=== PATIENT | female | born 1980 | race Caucasian/White ===

== ENCOUNTER → 2018-04-22 | Outpatient (CLI) | payer SELFPAY ==
--- NOTE | 2018-04-22 11:04 | RADIOLOGY REPORT (SQ) ---
EXAM DESCRIPTION: CT ABD/PELVIS NO ORAL OR IV COMPLETED DATE/TIME: 04/22/2018 10:21 am REASON FOR STUDY: HEMATURIA (R31.29) R31.29 OTHER MICROSCOPIC HEMATURIA COMPARISON: None. TECHNIQUE: CT scan of the abdomen and pelvis performed without intravenous or oral contrast. Images reviewed with lung, soft tissue, and bone windows. Reconstructed coronal and sagittal MPR images revi ewed. All images stored on PACS. All CT scanners at this facility use dose modulation, iterative reconstruction, and/or weight based d osing when appropriate to reduce radiation dose to as low as reasonably achievable (ALARA). [facility]: Dose Right [facility]: CareDose [facility]: Dose Right [facility]: Teradose 4D [facility]: [employer] Vaccines RADIATION DOSE: CT Rad equipment meets quality standard of care and radiation dose reduction techniq ues were employed. CTDIvol: 17.6 mGy. DLP: 1028 mGy-cm.mGy. LIMITATIONS: None. FINDINGS: LOWER CHEST: No significant findings. No nodules or infiltrates. NON-CONTRASTED LIVER, SPLEEN, ADRENALS: Evaluation limited by lack of IV contrast. Liver spleen and right adrenal gland are unremarkable. 1.5 x 2.2 cm fatty benign left adrenal nodule of doubtful clin ical significance PANCREAS: No masses. No peripancreatic inflammatory changes. GALLBLADDER: Surgically absent RIGHT KIDNEY AND URETER: No suspicious masses. Assessment limited by lack of IV contrast. No signif icant calcifications. No hydronephrosis or hydroureter. LEFT KIDNEY AND URETER: No suspicious masses. Assessment limited by lack of IV contrast. No signifi cant calcifications. No hydronephrosis or hydroureter. AORTA AND RETROPERITONEUM: No aneurysm. No retroperitoneal masses or adenopathy. BOWEL AND PERITONEAL CAVITY: The no oral contrast. No CT signs of free intraperitoneal air or fluid. There is mild dilatation of left upper quadrant small bowel loops, without a discrete transition po int. Mid and distal small bowel loops, colon decompressed. APPENDIX: Normal. PELVIS, BLADDER, AND ABDOMINAL WALL:No abnormal masses. No free fluid. Bladder normal. Normal size f emale pelvic organs BONES: No significant findings. OTHER: Report called to Patrice EDWARDS at 1045 hours 04/13/2018 IMPRESSION: No urinary calculi are identified. Mildly dilated proximal small bowel loops without discrete transition point. Findings discussed with ordering practitioner as above COMMENT: Quality ID # [id number]: Final reports with documentation of one or more dose reduction techniques (e.g., Automated exposure control, adjustment of the mA and/or kV according to patient size, use of iterative reconstruction technique) TECHNICAL DOCUMENTATION: JOB ID: [id number] [employer]- All Rights Reserved Reading location - IP/workstation name: [email or web address]
== END ==
LOC: RAD 09:31
PROVIDERS: ATTEND Physician Assistant
DX: R31.29 Other microscopic hematuria (principal); K56.2 Volvulus
CPT/HCPCS: 74176

== ENCOUNTER 2019-05-28 11:07 | Emergency (ER) | payer BC ==
[2019-05-28] MEDS ORDERED: ADENOSINE INJ/PF 6 MG/2 ML SDV IV ONE ×4 (11:35→12:09)
[2019-05-28] MEDS ORDERED: NORMAL SALINE 1000 ML 1,000 ML IV ONE ×2 (11:35→15:09)
[2019-05-28] MEDS ORDERED: LORAZEPAM INJ 2 MG/1 ML VIAL IV ONE (11:35)
[2019-05-28 11:39] LABS: ABSOLUTE LYMPHOCYTES (AUTO) 0.5 10^3/uL (0.5-4.7); ABSOLUTE MONOCYTES (AUTO) 0.4 10^3/uL (0.1-1.4); ABSOLUTE NEUT (AUTO) 6.8 10^3/uL (1.7-8.2); BASOPHILS % (AUTO) 0.2 % (0-2); EOSINOPHILS % (AUTO) 0.4 % (0-6); HEMOGLOBIN 12.7 g/dL (12.0-15.5); LYMPHOCYTES % (AUTO) 6.4 % (13-45); MEAN CORPUSCULAR HEMOGLOBIN 28.5 pg (27.0-33.4); MEAN CORPUSCULAR HGB CONC 33.3 g/dL (32.0-36.0); MEAN CORPUSCULAR VOLUME 86 fl (80-97); MONOCYTES % (AUTO) 4.9 % (3-13); PLATELET COUNT 214 10^3/uL (150-450); RED BLOOD COUNT 4.44 10^6/uL (3.72-5.28); RED CELL DISTRIBUTION WIDTH 13.4 % (11.5-14.0); SEGMENTED NEUTROPHILS % (AUTO) 88.1 % (42-78); TOTAL CELLS COUNTED % (AUTO) 100 %; WHITE BLOOD COUNT 7.8 10^3/uL (4.0-10.5)
--- NOTE | 2019-05-28 11:42 | ER Document Report ---
ED General - General TRAVEL OUTSIDE OF THE [place] IN LAST 30 DAYS: No <SUSAN YOON - Last Filed: 05/28/19 16:21> <DARRYL GILBERT - Last Filed: 05/28/19 16:41> - General Chief Complaint: Palpitations Stated Complaint: POSSIBLE HEART PALPITATIONS Time Seen by Provider: 05/28/19 11:20 Primary Care Provider: JEANNE STEVENSON PA [NO LOCAL MD] - Follow up as needed SELINA CHAUHAN MD [ACTIVE PROVISIONAL STAFF] - Follow up in 1 week Notes: 39-year-old female brought in by EMS for racing heart. Patient states that she woke up this morning and felt tired, she has had a dry cough for the past day or 2 and she noticed that when she started to walk her heart rate jumped up into the 160s. She called 911 and they gave her Cardizem and Benadryl after she re fused the adenosine. States that it temporarily relieved some of her symptoms but now they are back. She is complaining of a discomfort in her chest that she would not describe as pain as well as a dry mouth. Patient has a history of subclinical thyrotoxicosis, she is treated with Toprol 12.5 mg to help with this. Also gives a history of anxiety. Patient does admit that she has had similar symptoms in the past but it usually goes away on its own. (SUSAN YOON) - Related Data Allergies/Adverse Reactions: labetalol [Labetalol] Allergy (Severe, Verified 05/28/19 11:29) Hypoglycemia Penicillins Allergy (Mild, Verified 05/28/19 11:29) Hives ranitidine HCl [From Zantac] Adverse Reaction (Severe, Verified 05/28/19 11:29) hepatitis erythromycin base [Erythromycin Base] Adverse Reaction (Intermediate, Verified 05/28/19 11:29) epig pain Past Medical History - General Information source: Patient - Social History Smoking Status: Never Smoker Chew tobacco use (# tins/day): No Frequency of alcohol use: None Drug Abuse: None Family History: Reviewed & Not Pertinent Patient has suicidal ideation: No Patient has homicidal ideation: No GI Medical History: Reports: Hx Gastroesophageal Reflux Disease Past Surgical History: Reports: Hx Cholecystectomy - Immunizations Hx Diphtheria, Pertussis, Tetanus Vaccination: Yes <SUSAN YOON - Last Filed: 05/28/19 16:21> Review of Systems - Review of Systems Constitutional: See HPI, Weakness EENT: No symptoms reported Cardiovascular: See HPI, Palpitations, Heart racing Respiratory: See HPI, Cough, Short of breath Neurological/Psychological: See HPI, Anxiety -: Yes All other systems reviewed and negative <SUSAN YOON - Last Filed: 05/28/19 16:21> Physical Exam - Vital signs Interpretation: Tachycardic <SUSAN YOON - Last Filed: 05/28/19 16:21> - Vital signs Vitals: Resp BP Pulse Ox 17 141/75 H 98 05/28/19 11:17 05/28/19 11:17 05/28/19 11:17 - Notes Notes: GENERAL: Alert, interacts well. Anxious. HEAD: Normocephalic, atraumatic EYES: Pupils equal, round and reactive to light, extraocular movements intact. ENT: Oral mucosa moist, tongue midline. Nares patent, tympanic membranes intact , left turbinate edema. NECK: Full range of motion, supple, trachea midline. LUNGS: Clear to auscultation bilaterally, no wheezes, rales or rhonchi, mildly tachypneic. HEART: Tachycardic but regular rate and rhythm, no murmurs, gallops, rubs. ABDOMEN: Soft, nontender, nondistended, bowel sounds present in all 4 quadrants. EXTREMITIES: Moves all 4 extremities spontaneously, no edema, radial and dorsalis pedis pulses 2/4 bilaterally. No cyanosis. NEUROLOGICAL: Alert and oriented x3, normal speech. PSYCH: Anxious. SKIN: Warm, Dry, normal turgor, no rashes or lesions noted. (SUSAN YOON) Course - Laboratory Result Diagrams: 05/28/19 11:11 05/28/19 11:11 <SUSAN YOON - Last Filed: 05/28/19 16:21> - Laboratory Result Diagrams: 05/28/19 11:11 05/28/19 11:11 <DARRYL GILBERT - Last Filed: 05/28/19 16:41> - Re-evaluation Re-evalutation: 05/28/19 12:06 Attempted adenosine 6 mg followed by 12 mg followed by another 12 mg as well as giving her Ativan for anxiety. He heart rate did temporarily slow and reveal an underlying sinus mechanism however it did not break. At this point given the patient's history of sub-clinical thyrotoxicosis I will continue with fluids, give her propranolol 1 mg IV and wait for testing to come back. 05/28/19 13:53 1 mg of propranolol did decrease her heart rate to the low 100s. Patient is feeling significantly better. 05/28/19 13:53 CBC unremarkable, CMP unremarkable, troponin undetectable, TSH low at 0.31, free T3 and T4 are normal, hCG negative, chest x-ray shows no acute process. Patient was given a liter of fluids as well. Discussed with patient that I cannot tell her exactly why she was so significantly tachycardic however she has had palpitations and tachycardia before in the past. Previously and currently treated with metoprolol 12.5 mg twice a day, 1 we discussed possibly increasing saying that she stated that when it went to 25 mg twice a day she had hypotension. Since propranolol is beneficial both for her tachycardia and for hyperthyroidism she is willing to try propranolol ER 60 mg daily and she will follow-up with Dr. Chauhan from cardiology as an outpatient for possible Holter monitor and other investigation into her SVT. 05/28/19 15:23 Patient's temperature was checked and found to be febrile 102.2. Patient has a red flush across her chest, it is not raised, it is now dark urticarial, it does not itch. No evidence of hives or allergic reaction at this time. Patient is now complaining of a pain in her chest that radiates to her back. States that initially the discomfort in her chest had gone away when her heart rate was lower but now it is back with a fever. EKG will be repeated, patient will be checked for UTI and influenza. D-dimer will be ordered to look for the po ssibility of PE or dissection. 05/28/19 16:21 Small blood in the urine, no signs of infection, flu swabs are negative, repeat troponin is pending. D-dimer is normal. So long as repeat troponin is also normal patient will be discharged to home, will return for any new symptoms. (SUSAN YOON) - Vital Signs Vital signs: Temp Pulse Resp BP Pulse Ox 101.5 F H 21 H 117/70 100 05/28/19 15:17 05/28/19 15:29 05/28/19 15:29 05/28/19 15:29 - Laboratory Laboratory results interpreted by me: 05/28/19 05/28/19 05/28/19 11:11 11:11 12:14 Lymph % (Auto) 6.4 L Seg Neutrophils % 88.1 H TSH 0.31 L Urine Blood SMALL H - EKG Interpretation by Me Additional EKG results interpreted by me: 05/28/19 13:55 EKG shows sinus tachycardia at a rate of 126, normal axis, normal intervals, no ST segment elevations or depressions, no T wave inversions per my interpretation. (SUSAN YOON) Discharge <SUSAN YOON - Last Filed: 05/28/19 16:21> <DARRYL GILBERT - Last Filed: 05/28/19 16:41> - Discharge Clinical Impression: SVT (supraventricular tachycardia), Hyperthyroidism Fever Qualifiers: Fever type: unspecified Qualified Code(s): R50.9 - Fever, unspecified Condition: Stable Disposition: HOME, SELF-CARE Additional Instructions: It is very important that you follow-up with a junior recruiter for your SVT. He may wish to do a Holter monitor or an echocardiogram. It is also important that you follow-up with your primary care physician and possibly an business development associate to continue tracking your hyperthyroidism. I have prescribed your propranolol ER 60 mg daily. This should help to decrease your episodes of tachycardia. I do not know why you have a fever. Your flu swab and your chest x-ray and your urine was negative for any signs of infection. Please return should you develop any new symptoms that might help us to figure out exactly what is causing your fever. This would include abdominal pain, neck pain, vomiting or confusion. Please return should your heart start racing again and not be controlled by your propranolol, if you develop chest pain or any new or concerning symptoms. Prescriptions: Propranolol HCl [Propranolol HCl ER] 60 mg PO DAILY #30 cap.sa.24h Referrals: JEANNE STEVENSON PA [NO LOCAL MD] - Follow up as needed SELINA CHAUHAN MD [ACTIVE PROVISIONAL STAFF] - Follow up in 1 week
[2019-05-28 11:51] LABS: ALBUMIN 4.1 g/dL (3.5-5.0); ALKALINE PHOSPHATASE 89 U/L (38-126); ANION GAP 9 (5-19); ASPARTATE AMINO TRANSFERASE 24 U/L (14-36); BILIRUBIN,TOTAL 0.5 mg/dL (0.2-1.3); BLOOD UREA NITROGEN 9 mg/dL (7-20); CARBON DIOXIDE 25 mmol/L (22-30); CHLORIDE 106 mmol/L (98-107); CREATINE KINASE 60 U/L (30-135); GLUCOSE 107 mg/dL (75-110); POTASSIUM 4.2 mmol/L (3.6-5.0); TOTAL PROTEIN 7.8 g/dL (6.3-8.2)
--- NOTE | 2019-05-28 11:53 | RADIOLOGY REPORT (SQ) ---
EXAM DESCRIPTION: CHEST SINGLE VIEW COMPLETED DATE/TIME: 05/28/2019 11:45 am REASON FOR STUDY: chest pain COMPARISON: Chest films 06/27/2014, 08/02/2012 EXAM PARAMETERS: NUMBER OF VIEWS: One view. TECHNIQUE: Single frontal radiographic view of the chest acquired. RADIATION DOSE: NA LIMITATIONS: None. FINDINGS: LUNGS AND PLEURA: No opacities, masses or pneumothorax. No pleural effusion. MEDIASTINUM AND HILAR STRUCTURES: No masses. Contour normal. HEART AND VASCULAR STRUCTURES: Heart normal in size. Normal vasculature. BONES: No acute findings. HARDWARE: None in the chest. OTHER: No other significant finding. IMPRESSION: NO ACUTE RADIOGRAPHIC FINDING IN THE CHEST. TECHNICAL DOCUMENTATION: JOB ID: [id number] [email or web address]- All Rights Reserved Reading location - IP/workstation name: [email or web address]
[2019-05-28 12:04] LABS: TROPONIN I < 0.012 ng/mL
[2019-05-28] MEDS ORDERED: PROPRANOLOL HCL INJ/PF 1 MG/1 ML SDV IV ONE (12:06)
[2019-05-28 12:38] LABS: FREE T3 3.03 pg/mL (2.77-5.27); FREE T4 (FREE THYROXINE) 1.5 ng/dL (0.78-2.19)
[2019-05-28 12:52] LABS: THYROID STIMULATING HORMONE 0.31 uIU/mL (0.47-4.68)
[2019-05-28] MEDS ORDERED: PROPRANOLOL HCL 40 MG TABLET PO ONE (13:50)
[2019-05-28] MEDS ORDERED: ACETAMINOPHEN 325 MG TABLET PO ONE (15:09)
[2019-05-28] MEDS ORDERED: IBUPROFEN 800 MG TABLET PO ONE (15:09)
[2019-05-28 15:57] LABS: APPEARANCE,URINE CLEAR; BILIRUBIN,URINE NEGATIVE (NEGATIVE); COLOR,URINE STRAW; GLUCOSE, URINE NEGATIVE (NEGATIVE); KETONES,URINE NEGATIVE (NEGATIVE); LEUKOCYTE ESTERASE,URINE NEGATIVE (NEGATIVE); NITRITE,URINE NEGATIVE (NEGATIVE); PROTEIN,URINE NEGATIVE (NEGATIVE); URINE SPECIFIC GRAVITY 1.006; UROBILINOGEN,URINE NEGATIVE mg/dL (<2.0)
--- NOTE | 2019-05-28 16:05 | EKG REPORT ---
SEVERITY:- ABNORMAL ECG - SINUS TACHYCARDIA ABNRM R PROG, CONSIDER ASMI OR LEAD PLACEMENT : Confirmed by: Haroldo Spicer MD 28-May-2019 16:05:27
[2019-05-28 16:15] LABS: A TYPE INFLUENZA AG NEGATIVE (NEGATIVE); B INFLUENZA AG NEGATIVE (NEGATIVE)
[2019-05-28 17:08] VITALS: BP 116/62
== END 2019-05-28 17:08 | disposition home or self-care (01) ==
LOC: ER 11:07
DX: I47.1 Supraventricular tachycardia (principal); E05.90 Thyrotoxicosis, unspecified without thyrotoxic crisis or storm; R50.9 Fever, unspecified; R00.2 Palpitations; R05 Cough; R53.1 Weakness; R68.2 Dry mouth, unspecified; Z79.899 Other long term (current) drug therapy; Z88.0 Allergy status to penicillin; Z88.8 Allergy status to other drugs, medicaments and biological substances
CPT/HCPCS: 93005; 99285; 96361; 96374; 96375; 36415; 84439; 82553; 82550; 84443; 84703; 85025; 80053; 81001; 84484; 84481; 85379; 87804; 71045; 93010; J2060; J1800; J3490; J7030; J0153

== ENCOUNTER 2019-05-29 05:06 | Inpatient (IN) | payer BC ==
[2019-05-29] MEDS ORDERED: ACETAMINOPHEN 325 MG TABLET PO ONE (05:25)
[2019-05-29] MEDS ORDERED: RINGERS LACTATED IV ONE (05:25)
--- NOTE | 2019-05-29 05:28 | ER Document Report ---
ED General - General Stated Complaint: SVT Notes: With ongoing palpitations and tachycardia. Is been going on for about 3 days. She was seen here yesterday diagnosed with SVT although did not convert with adenosine was discharged with propranolol but did not fill. Intermittent palpitations and fast heart rate going on for about 3 days. She denies a fever but is febrile. She denies any pain other than epigastric discomfort/lower chest discomfort during episodes of tachycardia. She said when she was discharged her heart rate is 60 but it jumped up to the high 100s overnight. Family history of [place]'snegative recent TSH but no work-up for this as an outpatient. Denies body aches sore throat headache shortness of breath recent surgeries or leg swelling. TRAVEL OUTSIDE OF THE [place] IN LAST 30 DAYS: No - Related Data Allergies/Adverse Reactions: labetalol [Labetalol] Allergy (Severe, Verified 05/28/19 11:29) Hypoglycemia Penicillins Allergy (Mild, Verified 05/28/19 11:29) Hives ranitidine HCl [From Zantac] Adverse Reaction (Severe, Verified 05/28/19 11:29) hepatitis erythromycin base [Erythromycin Base] Adverse Reaction (Intermediate, Verified 05/28/19 11:29) epig pain Past Medical History - Social History Smoking Status: Never Smoker Family History: Reviewed & Not Pertinent GI Medical History: Reports: Hx Gastroesophageal Reflux Disease Past Surgical History: Reports: Hx Cholecystectomy - Immunizations Hx Diphtheria, Pertussis, Tetanus Vaccination: Yes Review of Systems - Review of Systems Notes: REVIEW OF SYSTEMS GEN: Denies fever, chills, weight loss ENT: Denies sore throat, nasal discharge, ear pain EYES: Denies blurry vision, eye pain, discharge CV: Lower chest pain, palpitations RESP: Denies cough, shortness of breath, wheezing GI: Denies abdominal pain, nausea, vomiting, diarrhea MSK: Denies joint pain/swelling, edema, SKIN: Denies rash, skin lesions LYMPH: Denies swollen glands/lymph nodes NEURO: Denies headache, focal weakness or numbness, dizziness PSYCH: Denies depression, suicidal or homicidal ideation PHYSICAL EXAMINATION General: The touch. No acute distress, well-nourished Head: Atraumatic, normocephalic ENT: Mouth normal, oropharynx moist, no exudates or tonsillar enlargement Eyes: Conjunctiva normal, pupils equal, lids normal Neck: No JVD, supple, no guarding CVS: Regular tachycardia, no murmurs gallops or rubs Resp: No resp distress, equal and normal breath sounds bilaterally GI: Nondistended, soft, no tenderness to palpation, no rebound or guarding Ext: No deformities, no edema, normal range of motion in upper and lower ext Back: No CVA or midline TTP Skin: No rash, warm Lymphatic: No lymphadeopathy noted Neuro: Awake, alert. Face symmetric. GCS 15. Physical Exam - Vital signs Vitals: Temp Pulse Ox 102.3 F H 99 05/29/19 05:07 05/29/19 05:07 Course - Re-evaluation Re-evalutation: 05/29/19 08:08 Patient presents with sinus tachycardia unexplained systemic symptoms and history of thyroid issues EKG confirmed sinus tachycardia Does have mild shortness of breath No evidence of pneumonia Check labsTSH is decreased likely subclinical thyrotoxicosis. Given metoprolol x1, heart rate [id number] PE study pending, sent secondary to unexplained tachycardia however thyroid is more likely Patient was given IV fluids as well. Patient was discussed with Dr. wilson saw she/day hospitalist will be admitted to [facility] - Vital Signs Vital signs: Temp Pulse Resp BP Pulse Ox 98.5 F 18 131/74 H 98 05/29/19 08:00 05/29/19 07:16 05/29/19 07:16 05/29/19 07:16 Young female patient presents with ongoing palpitations, sinus tachycardia history of hyperthyroid/subclinical thyrotoxicosis and fever. Recent work-up negative No localizing symptoms Ongoing to rule out PE, treat with fluids, do sepsis work-up and TSH Also added T3-T4 - Laboratory Result Diagrams: 05/29/19 04:40 05/29/19 04:40 Laboratory results interpreted by me: 05/29/19 05/29/19 05/29/19 04:40 04:40 04:40 Lymph % (Auto) 5.1 L Absolute Lymphs (auto) 0.3 L Seg Neutrophils % 87.0 H VBG pCO2 AST 45 H TSH 0.31 L Free T3 pg/mL Urine Ketones Urine Blood 05/29/19 05/29/19 05/29/19 05:35 05:53 06:58 Lymph % (Auto) Absolute Lymphs (auto) Seg Neutrophils % VBG pCO2 34.7 L AST TSH Free T3 pg/mL 2.70 L Urine Ketones TRACE H Urine Blood SMALL H - Diagnostic Test Radiology reviewed: Image reviewed, Reports reviewed - EKG Interpretation by Me EKG shows normal: Sinus rhythm Rate: Tachycardia When compared to previous EKG there are: Changes noted Critical Care Note - Critical Care Note Total time excluding time spent on procedures (mins): 34 Comments: The above patient is critically ill. Not including procedures, but including direct re-evaluations, speaking with patient and/or consultants, interpreting results, and documenting, I spent the total amount of minute listed listed above on critical care time Discharge - Discharge Clinical Impression: Thyrotoxicosis Qualifiers: Thyrotoxicosis type: other Thyrotoxic crisis or storm presence: with thyrotoxic crisis or storm Qualified Code(s): E05.81 - Other thyrotoxicosis with thyrotoxic crisis or storm Condition: Fair Disposition: ADMITTED INPATIENT Admitting Provider: Donald (Hospitalist) Unit Admitted: [facility]
[2019-05-29] MEDS ORDERED: IBUPROFEN 800 MG TABLET PO ONE (05:39)
[2019-05-29] MEDS ORDERED: IBUPROFEN 800 MG TABLET ONE (05:40)
[2019-05-29 05:43] LABS: ABSOLUTE LYMPHOCYTES (AUTO) 0.3 10^3/uL (0.5-4.7); ABSOLUTE MONOCYTES (AUTO) 0.4 10^3/uL (0.1-1.4); ABSOLUTE NEUT (AUTO) 4.4 10^3/uL (1.7-8.2); BASOPHILS % (AUTO) 0.3 % (0-2); EOSINOPHILS % (AUTO) 0.4 % (0-6); HEMOGLOBIN 12.8 g/dL (12.0-15.5); LYMPHOCYTES % (AUTO) 5.1 % (13-45); MEAN CORPUSCULAR HEMOGLOBIN 28.9 pg (27.0-33.4); MEAN CORPUSCULAR HGB CONC 33.8 g/dL (32.0-36.0); MEAN CORPUSCULAR VOLUME 85 fl (80-97); MONOCYTES % (AUTO) 7.2 % (3-13); PLATELET COUNT 200 10^3/uL (150-450); RED BLOOD COUNT 4.45 10^6/uL (3.72-5.28); RED CELL DISTRIBUTION WIDTH 13.8 % (11.5-14.0); TOTAL CELLS COUNTED % (AUTO) 100 %; WHITE BLOOD COUNT 5.1 10^3/uL (4.0-10.5)
[2019-05-29 05:47] LABS: INTERNATIONAL RATION (INR) 1.02; PROTHROMBIN TIME 13.4 SEC (11.4-15.4)
[2019-05-29 06:10] LABS: A TYPE INFLUENZA AG NEGATIVE (NEGATIVE); B INFLUENZA AG NEGATIVE (NEGATIVE)
[2019-05-29 06:14] LABS: ALBUMIN 4.1 g/dL (3.5-5.0); ALKALINE PHOSPHATASE 91 U/L (38-126); ANION GAP 9 (5-19); ASPARTATE AMINO TRANSFERASE 45 U/L (14-36); BILIRUBIN,TOTAL 0.3 mg/dL (0.2-1.3); BLOOD UREA NITROGEN 7 mg/dL (7-20); CALCIUM 9.3 mg/dL (8.4-10.2); CARBON DIOXIDE 25 mmol/L (22-30); CHLORIDE 106 mmol/L (98-107); GLUCOSE 92 mg/dL (75-110); POTASSIUM 3.9 mmol/L (3.6-5.0); TOTAL PROTEIN 7.5 g/dL (6.3-8.2)
[2019-05-29 06:23] LABS: APPEARANCE,URINE SLIGHTLY-CLOUDY; BILIRUBIN,URINE NEGATIVE (NEGATIVE); COLOR,URINE YELLOW; GLUCOSE, URINE NEGATIVE (NEGATIVE); KETONES,URINE TRACE mg/dL (NEGATIVE); PROTEIN,URINE NEGATIVE (NEGATIVE); URINE SPECIFIC GRAVITY 1.014; UROBILINOGEN,URINE NEGATIVE mg/dL (<2.0)
[2019-05-29 06:42] LABS: VENOUS BLOOD BASE EXCESS -1.9 mmol/L; VENOUS BLOOD HCO3 22.2 mmol/L (20-32); VENOUS BLOOD PCO2 34.7 mmHg (35-63); VENOUS BLOOD PH 7.42 (7.30-7.42)
[2019-05-29] MEDS ORDERED: METOPROLOL TARTRATE PF/INJ 5 MG/5 ML SDV IV ONE (06:46)
--- NOTE | 2019-05-29 07:43 | RADIOLOGY REPORT (SQ) ---
EXAM DESCRIPTION: CT CHEST ANGIOGRAPHY WITHOUT THEN WITH IV CONTRAST COMPLETED DATE/TME: 05/29/2019 05:39 CLINICAL HISTORY: Chest pain unexplained tachycardia COMPARISON: None Available. TECHNIQUE: CTA of the chest obtained before and after the intravenous administration of 160 mL Isovue-300. IVC filter first injection. 3-D/MIP reformatted images of the chest available for evaluation. FINDINGS: Chest: Pulmonary arteries: Contrast bolus is adequate.No filling defects identified in the pulmonary arteries to suggest pulmonary embolus. Thyroid:No abnormalities of the visualized thyroid. Great Vessels:Great vessels have normal anatomic configuration. Thoracic Aorta:No abnormalities of the thoracic aorta identified. Heart:No cardiomegaly, significant pericardial effusion, or coronary artery atherosclerosis Lymph Nodes:No enlarged mediastinal lymph nodes identified. Esophagus:No abnormalities of the esophagus identified. Other:No additional findings. Lungs:No airspace opacities identified. Pleura:No pleural effusion or pneumothorax. Trachea/Airways:No abnormalities of the visualized trachea or airways. Bones: Minimal degenerative change of the spine. Upper Abdomen:Limited images of the upper abdomen demonstrate no definite abnormalities of visualized portions of the liver, pancreas, spleen, right adrenal gland, or kidneys. Prior cholecystectomy. Stable 2.1 cm lipid rich left adrenal adenoma. No follow-up imaging recommended. IMPRESSION: 1. No pulmonary embolus. This exam was performed according to our departmental dose-optimization program, which includes automated exposure control, adjustment of the mA and/or kV according to patient size and/or use of iterative reconstruction technique.
[2019-05-29 07:52] LABS: FREE T3 2.7 pg/mL (2.77-5.27); FREE T4 (FREE THYROXINE) 1.51 ng/dL (0.78-2.19)
--- NOTE | 2019-05-29 09:16 | EKG REPORT ---
SEVERITY:- BORDERLINE ECG - SINUS TACHYCARDIA BORDERLINE R WAVE PROGRESSION, ANTERIOR LEADS BORDERLINE T ABNORMALITIES, INFERIOR LEADS : Confirmed by: Akbar Dennison 29-May-2019 09:16:07
[2019-05-29] MEDS ORDERED: ACETAMINOPHEN 325 MG TABLET PO PRN (10:11)
[2019-05-29] MEDS ORDERED: MAG HYDROX/AL HYDROX/SIMETH SUSP 30 ML UDCUP PO PRN (10:11)
[2019-05-29] MEDS ORDERED: LEVALBUTEROL HCL NEB 1.25 MG/3 ML AMPUL NEB PRN (10:11)
[2019-05-29] MEDS ORDERED: MAGNESIUM HYDROXIDE SUSP 30 ML UDCUP PO PRN (10:11)
[2019-05-29] MEDS ORDERED: ONDANSETRON HCL INJ/PF 4 MG/2 ML SDV IV PRN (10:11)
--- NOTE | 2019-05-29 13:41 | RADIOLOGY REPORT (SQ) ---
EXAM DESCRIPTION: U/S THYROID/SFT TISS HD NECK COMPLETED DATE/TIME: 05/29/2019 1:17 pm REASON FOR STUDY: hyperthyroidism, nodule COMPARISON: None. TECHNIQUE: Dynamic and static diaz-scale images acquired of the thyroid gland. Selected additional c olor/power Doppler images recorded. All images stored to PACS. LIMITATIONS: None. FINDINGS: RIGHT LOBE: Normal size. Homogeneous echotexture. No cystic or solid masses. LEFT LOBE: Normal size. Homogeneous echotexture. No cystic or solid masses. ISTHMUS: Normal size. Homogeneous echotexture. No cystic or solid masses. OTHER: No other significant finding. IMPRESSION: NORMAL THYROID ULTRASOUND. TECHNICAL DOCUMENTATION: JOB ID: [id number] [employer]- All Rights Reserved Reading location - IP/workstation name: [email or web address]
[2019-05-29] MEDS: HEPARIN SOD (PORCINE) 5,000 UNIT/ML 1 ML VIAL SUBCUT SCH ×2 (13:48→22:35)
[2019-05-29] MEDS: NORMAL SALINE 1000 ML 1,000 ML IV PRN (14:25)
[2019-05-29] MEDS ORDERED: IBUPROFEN 800 MG TABLET PO PRN (15:33)
--- NOTE | 2019-05-29 15:39 | PDOC H&P ---
History of Present Illness Admission Date/PCP: 05/29/19 07:45 ERNESTINA FELTON MD Patient complains of: Rapid heart rate History of Present Illness: EUN ALBARRAN is a 39 year old female with a past medical history significant for hypertension, GERD, depression, and obesity who presented to the emergency department via EMS with complaint of SVT (HR 140s). Patient had been seen in the emergency department the day prior for similar symptoms; received adenosine x3. 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 She returned to the emergency department prior to her next due dose of propanolol. Of note, patient does take metoprolol tartrate 12.5 mg twice daily as a home medication. Patient reports that she has had previous episodes of tachycardia but no prior history of SVT. 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 She does report that during a , she was diagnosed with subclinical hyperthyroidism. She reports that she was told that time she had a thyroid nodule. She has not followed up with endocrinology or been prescribed m edications for thyroid disorder in more than 3 years. Evaluation in the emergency department revealed a fever of 102.3, heart rate of 104 140, normal blood pressure, unremarkable CBC, coags, VBG, and chemistry. Patient was noted to have a TSH of 0.31 with a free T4 of 1.51 and free T3 of 2.70. Urinalysis was negative. Influenza negative. CTA of the chest negative for pulmonary embolus with only abnormal finding being a stable 2.1 cm lipid rich left adrenal adenoma. She was provided IV fluid bolus and IV Lopressor. She was referred to the hospitalist service for admission and management of SVT presumed to be related to hyperthyroidism. Past Medical History Cardiac Medical History: Reports: Hypertension Denies: Congestive Heart Failure, Coronary Artery Disease, Myocardial Infarction, Hyperlipidema Pulmonary Medical History: Reports: None EENT Medical History: Reports: None Neurological Medical History: Reports: None Endocrine Medical History: Reports: Hyperthyroidism, Obesity Denies: Diabetes Mellitus Type 2 Malignancy Medical History: Reports: None GI Medical History: Reports: Gastroesophageal Reflux Disease Musculoskeltal Medical History: Reports: None Skin Medical History: Reports: None Psychiatric Medical History: Reports: None Traumatic Medical History: Reports: None Hematology: Reports: None Infectious Medical History: Reports: None Past Surgical History Past Surgical History: Reports: Cholecystectomy Social History Information Source: Patient Lives with: Family Smoking Status: Never Smoker Electronic Cigarette use?: No Frequency of Alcohol Use: None Hx Recreational Drug Use: No Hx Prescription Drug Abuse: No - Advance Directive Resuscitation Status: Full Code Surrogate healthcare decision maker:: The patient's . Family History Family History: Thyroid Disfunction Parental Family History Reviewed: Yes Children Family History Reviewed: Yes Sibling(s) Family History Reviewed.: Yes Medication/Allergy Home Medications: Metoprolol Tartrate [Lopressor 25 mg Tablet] 12.5 mg PO Q12 05/29/19 Pantoprazole Sodium [Protonix [address] Tablet] 40 mg PO Q6AM 05/29/19 Venlafaxine HCl ER [Effexor Xr 37.5 mg Cap.sr] 37.5 mg PO DAILY 05/29/19 Allergies/Adverse Reactions: labetalol [Labetalol] Allergy (Severe, Verified 05/28/19 11:29) Hypoglycemia Penicillins Allergy (Mild, Verified 05/28/19 11:29) Hives ranitidine HCl [From Zantac] Adverse Reaction (Severe, Verified 05/28/19 11:29) hepatitis erythromycin base [Erythromycin Base] Adverse Reaction (Intermediate, Verified 05/28/19 11:29) epig pain Review of Systems Constitutional: PRESENT: fever(s). ABSENT: chills, headache(s), weight gain, weight loss Eyes: ABSENT: visual disturbances Ears: ABSENT: hearing changes Cardiovascular: PRESENT: palpitations. ABSENT: chest pain, dyspnea on exertion, edema, orthropnea Respiratory: ABSENT: cough, hemoptysis Gastrointestinal: ABSENT: abdominal pain, constipation, diarrhea, hematemesis, hematochezia, nausea, vomiting Genitourinary: ABSENT: dysuria, hematuria Musculoskeletal: ABSENT: joint swelling Integumentary: ABSENT: rash, wounds Neurological: ABSENT: abnormal gait, abnormal speech, confusion, dizziness, focal weakness, syncope Psychiatric: ABSENT: anxiety, depression, homidical ideation, suicidal ideation Endocrine: ABSENT: cold intolerance, heat intolerance, polydipsia, polyuria Hematologic/Lymphatic: ABSENT: easy bleeding, easy bruising Physical Exam Vital Signs: Temp Pulse Resp BP Pulse Ox 98.9 F 110 H 18 124/62 99 05/29/19 11:18 05/29/19 14:00 05/29/19 11:18 05/29/19 11:18 05/29/19 11:18 Intake & Output 05/28/19 05/29/19 05/30/19 06:59 06:59 06:59 Intake Total 240 Output Total 0 Balance 240 Weight 90 kg 107.4 kg General appearance: PRESENT: no acute distress, cooperative, obese, well- developed, well-nourished Head exam: PRESENT: atraumatic, normocephalic Eye exam: PRESENT: conjunctiva pink, EOMI, PERRLA. ABSENT: scleral icterus Ear exam: PRESENT: normal external ear exam Mouth exam: PRESENT: moist, tongue midline Neck exam: ABSENT: carotid bruit, JVD, lymphadenopathy, thyromegaly Respiratory exam: PRESENT: clear to auscultation carmen, symmetrical, unlabored. ABSENT: rales, rhonchi, wheezes Cardiovascular exam: PRESENT: RRR, +S1, +S2, tachycardia - <110. ABSENT: diastolic murmur, rubs, systolic murmur Pulses: PRESENT: normal dorsalis pedis pul Vascular exam: PRESENT: normal capillary refill GI/Abdominal exam: PRESENT: normal bowel sounds, soft. ABSENT: distended, guarding, mass, organolmegaly, rebound, tenderness Rectal exam: PRESENT: deferred Extremities exam: PRESENT: full ROM. ABSENT: calf tenderness, clubbing, pedal edema Neurological exam: PRESENT: alert, awake, oriented to person, oriented to place, oriented to time, oriented to situation, CN II-XII grossly intact. ABSENT: motor sensory deficit Psychiatric exam: PRESENT: appropriate affect, normal mood. ABSENT: homicidal ideation, suicidal ideation Skin exam: PRESENT: dry, intact, warm. ABSENT: cyanosis, rash Results Laboratory Results: 05/29/19 04:40 05/29/19 04:40 05/29/19 05/29/19 05/29/19 04:40 04:40 04:40 WBC 5.1 RBC 4.45 Hgb 12.8 Hct 38.0 MCV 85 MCH 28.9 MCHC 33.8 RDW 13.8 Plt Count 200 Seg Neutrophils % 87.0 H VBG pH VBG pCO2 VBG HCO3 VBG Base Excess Sodium 140.0 Potassium 3.9 Chloride 106 Carbon Dioxide 25 Anion Gap 9 BUN 7 Creatinine 0.73 Est GFR ( Amer) > 60 Glucose 92 Lactic Acid Calcium 9.3 Total Bilirubin 0.3 AST 45 H Alkaline Phosphatase 91 Total Protein 7.5 Albumin 4.1 TSH 0.31 L Free T4 Free T3 pg/mL Serum HCG, Qual Urine Color Urine Appearance Urine pH Ur Specific [place] Urine Protein Urine Glucose (UA) Urine Ketones Urine Blood Urine RBC (Auto) 05/29/19 05/29/19 05/29/19 04:40 04:40 05:12 WBC RBC Hgb Hct MCV MCH MCHC RDW Plt Count Seg Neutrophils % VBG pH VBG pCO2 VBG HCO3 VBG Base Excess Sodium Potassium Chloride Carbon Dioxide Anion Gap BUN Creatinine Est GFR ( Amer) Glucose Lactic Acid 0.9 Calcium Total Bilirubin AST Alkaline Phosphatase Total Protein Albumin TSH Free T4 Cancelled Free T3 pg/mL Cancelled Serum HCG, Qual Cancelled Urine Color Urine Appearance Urine pH Ur Specific [place] Urine Protein Urine Glucose (UA) Urine Ketones Urine Blood Urine RBC (Auto) 05/29/19 05/29/19 05/29/19 05:35 05:53 06:58 WBC RBC Hgb Hct MCV MCH MCHC RDW Plt Count Seg Neutrophils % VBG pH 7.42 VBG pCO2 34.7 L VBG HCO3 22.2 VBG Base Excess -1.9 Sodium Potassium Chloride Carbon Dioxide Anion Gap BUN Creatinine Est GFR ( Amer) Glucose Lactic Acid Calcium Total Bilirubin AST Alkaline Phosphatase Total Protein Albumin TSH Free T4 Free T3 pg/mL Serum HCG, Qual NEGATIVE Urine Color YELLOW Urine Appearance SLIGHTLY-CLOUDY Urine pH 7.0 Ur Specific [place] 1.014 Urine Protein NEGATIVE Urine Glucose (UA) NEGATIVE Urine Ketones TRACE H Urine Blood SMALL H Urine RBC (Auto) 7 05/29/19 05/29/19 05/29/19 06:58 08:08 12:32 WBC RBC Hgb Hct MCV MCH MCHC RDW Plt Count Seg Neutrophils % VBG pH VBG pCO2 VBG HCO3 VBG Base Excess Sodium Potassium Chloride Carbon Dioxide Anion Gap BUN Creatinine Est GFR ( Amer) Glucose Lactic Acid 0.5 L 1.1 Calcium Total Bilirubin AST Alkaline Phosphatase Total Protein Albumin TSH Free T4 1.51 Free T3 pg/mL 2.70 L Serum HCG, Qual Urine Color Urine Appearance Urine pH Ur Specific [place] Urine Protein Urine Glucose (UA) Urine Ketones Urine Blood Urine RBC (Auto) 05/29/19 04:40 Troponin I < 0.012 Impressions: Thyroid Ultrasound 05/29/19 00:00 IMPRESSION: NORMAL THYROID ULTRASOUND. Chest/Abdomen CTA 05/29/19 05:39 IMPRESSION: 1. No pulmonary embolus. This exam was performed according to our departmental dose-optimization program, which includes automated exposure control, adjustment of the mA and/or kV according to patient size and/or use of iterative reconstruction technique. Assessment and Plan - Diagnosis (1) SVT (supraventricular tachycardia) Is this a current diagnosis for this admission?: Yes Plan: Multiple emergency department visits for SVT. During her first visit she was administered adenosine 6 mg, 12 mg, 12 mg with decrease and heart rate but per patient not complete resolution of her tachycardia. She was discharged home with a prescription for propanolol but return to the emergency department by EMS prior to taking her first dose of this medication. Patient is admitted to [facility] on continuous cardiac telemetry. Thyroid panel does not fully support hyperthyroidism as the source of her SVT. Patient has been noted to have a fever of 102; her tachycardia likely coincides with fever. Unclear etiology of fever at this time; will investigate fever further. Blood and urine cultures pending. We will adjust metoprolol to Toprol-XL 25 mg twice daily for management of blood pressure and heart rate. Recommend outpatient cardiology follow-up; patient requests referral to Dr. Chauhan to see following discharge. (2) Fever Qualifiers: Fever type: unspecified Qualified Code(s): R50.9 - Fever, unspecified Is this a current diagnosis for this admission?: Yes Plan: Intermittent fevers; TMax of 102. Unclear etiology at this time. Patient's thyroid function does not fully support hyperthyroidism. I would not expect hyperthyroidism to cause a temperature of 102 without additional symptoms being present (patient denies headaches, weight loss, hair loss, anxiety, etc.). Patient's tachycardia is intermittent (possibly this coincides with fever?). CT of the chest was negative for pneumonia. Urinalysis negative for UTI. Blood and urine cultures are pending. Influenza screening negative and patient does not appear acutely ill. She denies rashes and skin wounds. No clear indications for antibiotic therapy at this time. We will continue IV fluids. Monitor for signs and symptoms of infectious process to warrant disease specific interventions. (3) Hyperthyroidism Is this a current diagnosis for this admission?: Yes Plan: Borderline laboratory evaluation with TSH of 0.31, free T4 1.51 and free T3 of 2.70. The somewhat low TSH does not correlate well with an elevated T3 or T4 to confirm hyperthyroidism. Thyroid ultrasound obtained today was normal. Patient denies symptoms to support hyperthyroidism other than SVT. It does appear that the patient has an elevated temperature of 102 which also could not be fully accounted for based on thyroid function alone. Low suspicion for hyperthyroidism at this time, therefore will hold on starting methimazole. We will start methimazole tomorrow if no clear source of fever has presented itself at that time or if she continues to have tachycardia despite increased metoprolol. Will discuss with endocrinology prior to discharge. (4) Hypertension Qualifiers: Hypertension type: essential hypertension Qualified Code(s): I10 - Essential (primary) hypertension Is this a current diagnosis for this admission?: Yes Plan: Acceptable blood pressure on home dose metoprolol. I am changing the patient's metoprolol today secondary to recurrent SVT; will discontinue metoprolol tartrate and start Toprol-XL 25 mg twice daily. (5) Obesity Qualifiers: Body mass index: BMI 39.0-39.9 Is this a current diagnosis for this admission?: Yes Plan: Dietary discretion and lifestyle modification encouraged. - Time Time Spent with patient: 35 or more minutes Medications reviewed and adjusted accordingly: Yes Anticipated discharge: Home Within: within 48 hours
[2019-05-29 21:32] LABS: APPEARANCE,URINE CLEAR; BILIRUBIN,URINE NEGATIVE (NEGATIVE); COLOR,URINE STRAW; GLUCOSE, URINE NEGATIVE (NEGATIVE); KETONES,URINE NEGATIVE (NEGATIVE); PROTEIN,URINE NEGATIVE (NEGATIVE); URINE SPECIFIC GRAVITY 1.011; UROBILINOGEN,URINE NEGATIVE mg/dL (<2.0)
[2019-05-29] MEDS ORDERED: METOPROLOL TARTRATE 25 MG TABLET PO SCH (22:00)
[2019-05-29] MEDS: METOPROLOL SUCCINATE 25 MG TAB.SR.24H PO SCH (22:35)
[2019-05-30] MEDS: NORMAL SALINE 1000 ML 1,000 ML IV PRN ×2 (00:29→11:03)
[2019-05-30 05:32] LABS: HEMATOCRIT 35.6 % (36.0-47.0); HEMOGLOBIN 11.8 g/dL (12.0-15.5); MEAN CORPUSCULAR HEMOGLOBIN 28.3 pg (27.0-33.4); MEAN CORPUSCULAR VOLUME 86 fl (80-97); PLATELET COUNT 154 10^3/uL (150-450); RED BLOOD COUNT 4.16 10^6/uL (3.72-5.28); RED CELL DISTRIBUTION WIDTH 13.8 % (11.5-14.0); WHITE BLOOD COUNT 3.4 10^3/uL (4.0-10.5)
[2019-05-30] MEDS: HEPARIN SOD (PORCINE) 5,000 UNIT/ML 1 ML VIAL SUBCUT SCH ×2 (05:55→13:32)
[2019-05-30] MEDS ORDERED: PANTOPRAZOLE SODIUM 40 MG TABLET.DR PO SCH (06:00)
[2019-05-30 06:03] LABS: ANION GAP 8 (5-19); BLOOD UREA NITROGEN 7 mg/dL (7-20); CALCIUM 8.3 mg/dL (8.4-10.2); CARBON DIOXIDE 23 mmol/L (22-30); CHLORIDE 108 mmol/L (98-107); GLUCOSE 92 mg/dL (75-110); POTASSIUM 3.7 mmol/L (3.6-5.0)
[2019-05-30] MEDS ORDERED: HYDROXYZINE PAMOATE 25 MG CAPSULE PO PRN (08:34)
[2019-05-30] MEDS: METOPROLOL SUCCINATE 25 MG TAB.SR.24H PO SCH (09:51)
[2019-05-30] MEDS ORDERED: (PENDING PHARMACY ID) (Venlafaxine Hcl [Effexor] 37.5 MG) PO SCH (10:00)
[2019-05-30] MEDS ORDERED: DOCUSATE SODIUM 100 MG CAPSULE PO SCH (10:00)
[2019-05-30] MEDS ORDERED: VENLAFAXINE HCL 37.5 MG CAP.SR.24H PO SCH (10:00)
[2019-05-30] MEDS ORDERED: AZITHROMYCIN 250 MG TABLET PO SCH (12:00)
[2019-05-30 12:10] VITALS: BP 124/77
--- NOTE | 2019-05-31 19:01 | PDOC DISCHARGE SUMMARY ---
Impression - Admit/DC Date/PCP Admission Date/Primary Care Provider: 05/29/19 07:45 ERNESTINA FELTON MD Discharge Date: 05/30/19 - Discharge Diagnosis (1) SVT (supraventricular tachycardia) Is this a current diagnosis for this admission?: Yes (2) Fever Is this a current diagnosis for this admission?: Yes (3) Hyperthyroidism Is this a current diagnosis for this admission?: Yes (4) Hypertension Is this a current diagnosis for this admission?: Yes (5) Obesity Is this a current diagnosis for this admission?: Yes (6) Strep pharyngitis Is this a current diagnosis for this admission?: Yes - Additional Information Resuscitation Status: Full Code Discharge Diet: Regular Discharge Activity: Activity As Tolerated, Balance Activity w/Rest Referrals: [facility] [Provider Group] - 06/13/19 8:30 am Prescriptions: Metoprolol Succinate [Toprol Xl 25 mg Tab.sr] 25 mg PO Q12 #60 tab.sr.24h Azithromycin [Zithromax 250 mg Tablet] 500 mg PO NOON #8 tablet Home Medications: Pantoprazole Sodium [Protonix [address] Tablet] 40 mg PO Q6AM 05/29/19 Venlafaxine HCl ER [Effexor Xr 37.5 mg Cap.sr] 37.5 mg PO DAILY 05/29/19 Acetaminophen [Tylenol 325 mg Tablet] 650 mg PO Q4HP PRN tablet 05/30/19 Azithromycin [Zithromax 250 mg Tablet] 500 mg PO NOON #8 tablet 05/30/19 Metoprolol Succinate [Toprol Xl 25 mg Tab.sr] 25 mg PO Q12 #60 tab.sr.24h 05/30/19 History of Present Illiness History of Present Illness: EUN ALBARRAN is a 39 year old female with a past medical history significant for hypertension, GERD, depression, and obesity who presented to the emergency department via EMS with complaint of SVT (HR 140s). Patient had been seen in the emergency department the day prior for similar symptoms; received adenosine x3. 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 She returned to the emergency department prior to her next due dose of propanolol. Of note, patient does take metoprolol tartrate 12.5 mg twice daily as a home medication. Patient reports that she has had previous episodes of tachycardia but no prior history of SVT. 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 She does report that during a , she was diagnosed with subclinical hyperthyroidism. She reports that she was told that time she had a thyroid nodule. She has not followed up with endocrinology or been prescribed medications for thyroid disorder in more than 3 years. Evaluation in the emergency department revealed a fever of 102.3, heart rate of 104 140, normal blood pressure, unremarkable CBC, coags, VBG, and chemistry. Patient was noted to have a TSH of 0.31 with a free T4 of 1.51 and free T3 of 2.70. Urinalysis was negative. Influenza negative. CTA of the chest negative for pulmonary embolus with only abnormal finding being a stable 2.1 cm lipid rich left adrenal adenoma. She was provided IV fluid bolus and IV Lopressor. She was referred to the hospitalist service for admission and management of SVT presumed to be related to hyperthyroidism. Hospital Course Hospital Course: The patient was admitted to [facility] on continuous cardiac telemetry. She was placed on Toprol-XL 25 mg twice daily for management of her blood pressure and heart rate; she had no further episodes of SVT. Her heart rate stayed consistently below 110 even with activity and emotional upset (anxiety regarding thyroid work-up). Her TSH was evaluated to find underlying cause of her SVT. TSH noted to be 0.31, free T4 1.51 and free T3 of 2.70. Thyroid ultrasound was normal. I did consult [facility] to review her case due to prior history of subclinical hyperthyroidism causing tachycardia in the past. Spoke with Dr. Eckert who agrees that she likely has subclinical hyperthyroidism exacerbated by her current streptococcal pharyngitis. There are no indications for starting methimazole at this time; continue to manage with beta-blockers as appropriate. She did recommend obtaining Thyroglobulin antibody testing; found to be <1.0. At patient's request, she was evaluated for adrenal insufficiency. Her random cortisol and a.m. cortisol levels were both appropriate. At time of admission, patient was noted to have a fever of 102. Initial infectious work-up was negative with benign chest x-ray, normal urinalysis, and negative influenza. Blood cultures remain negative at 48 hours. On day of discharge, the patient did admit to a sore throat, nonproductive cough, and generalized malaise. Rapid strep was positive. Due to her penicillin and erythromycin base allergies, she was discharged on a Z-Karlos. Fortunately, the strep resulted prior to my follow-up conversation with endocrinology and so this information was available during our consultation. The patient was discharged home in stable condition to self-care. At time of discharge, she was rate controlled on p.o. Toprol-XL. She was provided a prescription for azithromycin for treatment of her Streptococcal pharyngitis. She was instructed to drink plenty of fluids. She was encouraged to discuss with her primary care provider possible cardiology consultation or cardiac event monitoring as she has had multiple episodes of SVT in the past. She was also advised to return to the emergency department as needed for concerning symptoms. Physical Exam Vital Signs: Temp Pulse Resp BP Pulse Ox 98.1 F 92 16 124/77 97 05/30/19 17:16 05/30/19 17:16 05/30/19 17:16 05/30/19 11:53 05/30/19 17:16 Intake & Output 05/30/19 05/31/19 06/01/19 06:59 06:59 06:59 Intake Total 1240 1000 Output Total 1075 Balance 165 1000 Weight 108.1 kg General appearance: PRESENT: no acute distress, cooperative, obese, well- developed, well-nourished Head exam: PRESENT: atraumatic, normocephalic Eye exam: PRESENT: conjunctiva pink, EOMI, PERRLA. ABSENT: scleral icterus Ear exam: PRESENT: normal external ear exam Mouth exam: PRESENT: moist, tongue midline Neck exam: ABSENT: carotid bruit, JVD, lymphadenopathy, thyromegaly Respiratory exam: PRESENT: clear to auscultation carmen, symmetrical, unlabored. ABSENT: rales, rhonchi, wheezes Cardiovascular exam: PRESENT: RRR, tachycardia - HR <110. ABSENT: diastolic murmur, rubs, systolic murmur Pulses: PRESENT: normal dorsalis pedis pul Vascular exam: PRESENT: normal capillary refill GI/Abdominal exam: PRESENT: normal bowel sounds, soft. ABSENT: distended, guarding, mass, organolmegaly, rebound, tenderness Rectal exam: PRESENT: deferred Extremities exam: PRESENT: full ROM. ABSENT: calf tenderness, clubbing, pedal edema Musculoskeletal exam: PRESENT: ambulatory Neurological exam: PRESENT: alert, awake, oriented to person, oriented to place, oriented to time, oriented to situation, CN II-XII grossly intact. ABSENT: motor sensory deficit Psychiatric exam: PRESENT: anxious, appropriate affect, normal mood. ABSENT: homicidal ideation, suicidal ideation Skin exam: PRESENT: dry, intact, warm. ABSENT: cyanosis, rash Results Laboratory Results: WBC 3.4 10^3/uL (4.0-10.5) L 05/30/19 04:52 RBC 4.16 10^6/uL (3.72-5.28) 05/30/19 04:52 Hgb 11.8 g/dL (12.0-15.5) L 05/30/19 04:52 Hct 35.6 % (36.0-47.0) L 05/30/19 04:52 MCV 86 fl (80-97) 05/30/19 04:52 MCH 28.3 pg (27.0-33.4) 05/30/19 04:52 MCHC 33.0 g/dL (32.0-36.0) 05/30/19 04:52 RDW 13.8 % (11.5-14.0) 05/30/19 04:52 Plt Count 154 10^3/uL (150-450) 05/30/19 04:52 Lymph % (Auto) 5.1 % (13-45) L 05/29/19 04:40 [place] % (Auto) 7.2 % (3-13) 05/29/19 04:40 Eos % (Auto) 0.4 % (0-6) 05/29/19 04:40 Baso % (Auto) 0.3 % (0-2) 05/29/19 04:40 Absolute Neuts (auto) 4.4 10^3/uL (1.7-8.2) 05/29/19 04:40 Absolute Lymphs (auto) 0.3 10^3/uL (0.5-4.7) L 05/29/19 04:40 Absolute Monos (auto) 0.4 10^3/uL (0.1-1.4) 05/29/19 04:40 Absolute Eos (auto) 0.0 10^3/uL (0.0-0.6) 05/29/19 04:40 Absolute Basos (auto) 0.0 10^3/uL (0.0-0.2) 05/29/19 04:40 Seg Neutrophils % 87.0 % (42-78) H 05/29/19 04:40 PT 13.4 SEC (11.4-15.4) 05/29/19 04:40 INR 1.02 05/29/19 04:40 VBG pH 7.42 (7.30-7.42) 05/29/19 05:53 VBG pCO2 34.7 mmHg (35-63) L 05/29/19 05:53 VBG HCO3 22.2 mmol/L (20-32) 05/29/19 05:53 VBG Base Excess -1.9 mmol/L 05/29/19 05:53 Sodium 139.0 mmol/L (137-145) 05/30/19 04:52 Potassium 3.7 mmol/L (3.6-5.0) 05/30/19 04:52 Chloride 108 mmol/L (98-107) H 05/30/19 04:52 Carbon Dioxide 23 mmol/L (22-30) 05/30/19 04:52 Anion Gap 8 (5-19) 05/30/19 04:52 BUN 7 mg/dL (7-20) 05/30/19 04:52 Creatinine 0.56 mg/dL (0.52-1.25) 05/30/19 04:52 Est GFR ( Amer) > 60 (>60) 05/30/19 04:52 Est GFR (MDRD) Non-Af > 60 (>60) 05/30/19 04:52 Glucose 92 mg/dL (75-110) 05/30/19 04:52 POC Glucose 103 mg/dL (70-110) 05/30/19 06:58 Lactic Acid 1.1 mmol/L (0.7-2.1) 05/29/19 12:32 Calcium 8.3 mg/dL (8.4-10.2) L 05/30/19 04:52 Total Bilirubin 0.3 mg/dL (0.2-1.3) 05/29/19 04:40 Direct Bilirubin 0.0 mg/dL (0.0-0.4) 05/29/19 04:40 Neonat Total Bilirubin Not Reportable 05/29/19 04:40 Neonat Direct Bilirubin Not Reportable 05/29/19 04:40 Neonat Indirect Bili Not Reportable 05/29/19 04:40 AST 45 U/L (14-36) H 05/29/19 04:40 ALT 31 U/L (<35) 05/29/19 04:40 Alkaline Phosphatase 91 U/L (38-126) 05/29/19 04:40 Troponin I < 0.012 ng/mL 05/29/19 04:40 Total Protein 7.5 g/dL (6.3-8.2) 05/29/19 04:40 Albumin 4.1 g/dL (3.5-5.0) 05/29/19 04:40 TSH 0.58 uIU/mL (0.47-4.68) 05/30/19 04:52 Free T4 1.51 ng/dL (0.78-2.19) 05/29/19 06:58 Free T3 pg/mL 2.70 pg/mL (2.77-5.27) L 05/29/19 06:58 Serum HCG, Qual NEGATIVE (NEGATIVE) 05/29/19 06:58 Random Cortisol 8.39 ug/dL (None Established) 05/29/19 12:32 Cortisol AM Sample 9.19 ug/dL (4.46-22.7) 05/30/19 04:52 Urine Color STRAW 05/29/19 20:54 Urine Appearance CLEAR 05/29/19 20:54 Urine pH 7.0 (5.0-9.0) 05/29/19 20:54 Ur Specific [place] 1.011 05/29/19 20:54 Urine Protein NEGATIVE mg/dL (NEGATIVE) 05/29/19 20:54 Urine Glucose (UA) NEGATIVE mg/dL (NEGATIVE) 05/29/19 20:54 Urine Ketones NEGATIVE mg/dL (NEGATIVE) 05/29/19 20:54 Urine Blood SMALL (NEGATIVE) H 05/29/19 20:54 Urine Nitrite (Reflex) NEGATIVE (NEGATIVE) 05/29/19 20:54 Urine Bilirubin NEGATIVE (NEGATIVE) 05/29/19 20:54 Urine Urobilinogen NEGATIVE mg/dL (<2.0) 05/29/19 20:54 Leukocyte Esterase Rfl NEGATIVE (NEGATIVE) 05/29/19 20:54 Urine RBC (Auto) 5 /HPF 05/29/19 20:54 Urine Bacteria (Auto) TRACE /HPF 05/29/19 05:35 Urine WBC (Reflex) 1 /HPF 05/29/19 20:54 Squamous Epi Cells Auto 1 /HPF 05/29/19 20:54 Urine Mucus (Auto) RARE /LPF 05/29/19 20:54 Urine Ascorbic Acid NEGATIVE (NEGATIVE) 05/29/19 20:54 Thyroglobulin Antibody <1.0 IU/mL (0.0-0.9) 05/30/19 04:52 Influenza A (Rapid) NEGATIVE (NEGATIVE) 05/29/19 05:35 Influenza B (Rapid) NEGATIVE (NEGATIVE) 05/29/19 05:35 Group A Strep Rapid POSITIVE (NEGATIVE) 05/30/19 09:42 05/29/19 04:40 Troponin I < 0.012 Impressions: Thyroid Ultrasound 05/29/19 00:00 IMPRESSION: NORMAL THYROID ULTRASOUND. Chest/Abdomen CTA 05/29/19 05:39 IMPRESSION: 1. No pulmonary embolus. This exam was performed according to our departmental dose-optimization program, which includes automated exposure control, adjustment of the mA and/or kV according to patient size and/or use of iterative reconstruction technique. Plan Plan of Treatment: The patient is discharged home in stable condition. She is advised to follow-up with her primary care provider within 1 week. Consider establishing with a stockroom associate. Recommend outpatient cardiac event monitoring. She is advised to complete her course of antibiotic therapy and to take all other medications as prescribed. She is encouraged to return to emergency department as needed for concerning symptoms. Time Spent: Greater than 30 Minutes Stroke Is this a Stroke Patient?: No Acute Heart Failure - Is this a Heart Failure Patient?: No
== END 2019-05-30 17:41 | disposition home or self-care (01) | DRG 644 ==
LOC: ER 05:06 → INTOOBSV 07:45 → EH 07:45 → 3W 09:21 → INTOOBSV 10:11 → OBSVTOIN 10:11 → 3W 15:00
PROVIDERS: ADMIT Hospitalist; ATTEND Hospitalist
DX: E05.90 Thyrotoxicosis, unspecified without thyrotoxic crisis or storm (principal); I47.1 Supraventricular tachycardia; I10 Essential (primary) hypertension; E66.9 Obesity, unspecified; J02.0 Streptococcal pharyngitis; K21.9 Gastro-esophageal reflux disease without esophagitis; F32.9 Major depressive disorder, single episode, unspecified; F06.4 Anxiety disorder due to known physiological condition; Z68.39 Body mass index [BMI] 39.0-39.9, adult; Z88.3 Allergy status to other anti-infective agents; Z88.0 Allergy status to penicillin; Z88.8 Allergy status to other drugs, medicaments and biological substances; Z79.899 Other long term (current) drug therapy
CPT/HCPCS: 36415; 71275; 76536; 80048; 80053; 81001; 82533; 82803; 82962; 83605; 84439; 84443; 84481; 84484; 84703; 85025; 85027; 85610; 86800; 87040; 87804; 87880; 93005; 93010; 96361; 96374; 99291; J3490; J7030; J7120